=== PATIENT | male | born 2000 | race Caucasian/White ===

== ENCOUNTER 2018-10-03 14:12 | Emergency (ER) | payer OTHER ==
[2018-10-03 14:18] VITALS: BP 115/76; PULSE 100; TEMP 98; BMI 26.2
[2018-10-03] MEDS ORDERED: KETOROLAC TROMETHAMINE 60 MG/2 ML VIAL IM ONE (14:19)
--- NOTE | 2018-10-03 14:27 | PDOC ---
History of Present Illness - General Chief Complaint: Injury Stated Complaint: INJURY Time Seen by Provider: 10/03/18 14:20 History Source: Patient Exam Limitations: No Limitations - History of Present Illness Initial Comments: 10/03/18 14:34 18 yr male with c/o back pain after tackling someone playing football. no LOC, pt denies abd pain or head injury. Pt is ambulating, no distress. Occurred: reports: just prior to arrival Severity: reports: mild Pain Location: reports: back Method of Injury: Yes: fall Modifying Factors: improves with: None Past History - Past Medical History Allergies/Adverse Reactions: Allergies Allergy/AdvReac Type Severity Reaction Status Date / Time No Known Allergies Allergy Verified 10/03/18 14:15 Home Medications: Ambulatory Orders Cyclobenzaprine HCl [Flexeril -] 10 mg PO TID PRN #21 tablet 10/03/18 Naproxen [Naprosyn -] 500 mg PO BID PRN #14 tablet 10/03/18 COPD: No - Suicide/Smoking/Psychosocial Hx Smoking History: Never smoked *Physical Exam - Vital Signs Last Vital Signs Temp Pulse Resp BP Pulse Ox 98 F 100 H 18 115/76 99 10/03/18 14:16 10/03/18 14:16 10/03/18 14:16 10/03/18 14:16 10/03/18 14:16 - Physical Exam General Appearance: Yes: Nourished, Appropriately Dressed HEENT: positive: EOMI, LOLY Neck: positive: Supple. negative: Tender Respiratory/Chest: positive: Lungs Clear, Normal Breath Sounds Cardiovascular: positive: Regular Rhythm, Regular Rate Gastrointestinal/Abdominal: positive: Normal Bowel Sounds, Soft. negative: Tender Lymphatic: negative: Adenopathy Musculoskeletal: positive: Normal Inspection, Decreased Range of Motion. negative: CVA Tenderness, CVA Tenderness (R), CVA Tenderness (L), Muscle Spasm, Vertebral Tenderness Extremity: positive: Normal Capillary Refill, Normal Inspection, Normal Range of Motion Integumentary: positive: Normal Color, Dry, Warm Neurologic: positive: Fully Oriented, Alert, Normal Mood/Affect, Normal Response , Motor Strength 5/5, Finger to Nose (intact). negative: Numbness, Sensory Deficit Medical Decision Making - Medical Decision Making 10/03/18 14:47 cc: back injury playing football, pt tackled another player and felt his back "stretch upwards" no direct trauma to back no leg or abd pain no urine or bowel dysfunction pt has pain reproducable with bending forward and sideways no vetebral tenderness *DC/Admit/Observation/Transfer Diagnosis at time of Disposition: Back strain Qualifiers: Encounter type: initial encounter Qualified Code(s): S39.012A - Strain of muscle, fascia and tendon of lower back, initial encounter - Discharge Dispostion Disposition: HOME Condition at time of disposition: Improved - Prescriptions Prescriptions: Cyclobenzaprine HCl [Flexeril -] 10 mg PO TID PRN #21 tablet PRN Reason: Muscle Spasms Naproxen [Naprosyn -] 500 mg PO BID PRN #14 tablet PRN Reason: Back Pain - Referrals Referrals: Maninder Adler [Primary Care Provider] - - Patient Instructions Additional Instructions: apply ice for 20 minutes remove and apply heating pad or hot towel for 30 minutes alternate this every 3 hrs take flexeril for muscle spasms as needed take naproysn for pain no heavy lifting or bending follow with your doctor on Sunday return if any worsening symptoms - Post Discharge Activity
[2018-10-03] MEDS ORDERED: KETOROLAC TROMETHAMINE 60 MG/2 ML VIAL ONE (14:30)
== END 2018-10-03 15:03 | disposition home or self-care (01) ==
LOC: JERFT 14:12
PROC: 3E0233Z Introduction of Anti-inflammatory into Muscle, Percutaneous Approach (ICD-10-PCS; principal; 2018-10-03)
DX: S39.012A Strain of muscle, fascia and tendon of lower back, initial encounter (principal); W03.XXXA Other fall on same level due to collision with another person, initial encounter; Y93.61 Activity, american tackle football; Y92.89 Other specified places as the place of occurrence of the external cause; Y99.8 Other external cause status
CPT/HCPCS: 99281-25